=== PATIENT | male | born 1960 | race Caucasian/White ===

== ENCOUNTER 2021-02-05 10:25 | Outpatient (CLI) | payer MEDICARE, MEDICAID ==
[2021-02-05] MEDS ORDERED: LIDOCAINE SOLN 4% 50 ML BOTTLE ONE (10:58)
[2021-02-05] MEDS ORDERED: SILVER SULFADIAZINE CREAM 25 GM TUBE ONE (11:05)
== END 2021-02-05 23:59 | disposition home or self-care (01) ==
LOC: WOU 10:25
PROVIDERS: ATTEND Podiatrist Foot & Ankle Surgery
DX: T25.322D Burn of third degree of left foot, subsequent encounter (principal); T31.0 Burns involving less than 10% of body surface; X11.8XXD Contact with other hot tap-water, subsequent encounter; I10 Essential (primary) hypertension; M79.672 Pain in left foot
CPT/HCPCS: G0463